=== PATIENT | female | born 1985 | race Two or more races ===

== ENCOUNTER 2016-08-01 17:47 | Emergency (ER) | payer MEDICAID ==
[~2016-08-01] VITALS: Ht 160 cm; Wt 113.4 kg
[~2016-08-01 17:47] MED LIST: INTRA UTERINE DEVICE
[2016-08-01 18:52] LABS: Basophils # (auto) 0.1 uL; Basophils % (auto) 1.2 % (0.0-2.0); Eosinophils # (auto) 0.3 uL; Eosinophils % (auto) 2.2 % (0.0-7.0); Hematocrit 42.4 % (36.0-46.0); Lymphocytes % (auto) 16.2 % (10.0-50.0); Mean Corpuscular Hemoglobin 30.1 pg (28.0-32.0); Mean Corpuscular Hgb Conc. 33.1 g/dL (32.0-36.0); Mean Corpuscular Volume 90.9 fL (80.0-100.0); Monocytes # (auto) 0.9 uL; Monocytes % (auto) 7.2 % (0.0-12.0); Neutrophils # (auto) 9.1 uL; Neutrophils % (auto) 73.2 % (37.0-80.0); Platelet Count (auto) 328 10^3/uL (140-450); Red Cell Distribution Width 13.6 % (11.6-16.0); White Blood Cell 12.4 10^3/uL (4.4-10.8)
[2016-08-01 19:10] LABS: Albumin 3.5 g/dL (3.4-5.0); BUN/Creatinine Ratio 19.4; Calcium 8.6 mg/dL (8.5-10.1); Potassium 3.9 mmol/L (3.5-5.1)
[2016-08-01 19:13] LABS: Bilirubin, Total 0.3 mg/dL (0.2-1.0); Total Protein 7.9 g/dL (6.4-8.2)
[2016-08-01 19:14] LABS: Urine Bilirubin Negative (Negative); Urine Blood Negative /uL (Negative); Urine Color Yellow (Yellow); Urine Glucose Normal (Normal); Urine Ketone Negative (Negative); Urine Mucus FEW (None Seen); Urine Nitrite Negative (Negative); Urine RBC 1 /hpf (0 - 4); Urine Squamous Epithelial Cell FEW /hpf (<5); Urine Urobilinogen Normal (Negative)
[2016-08-02 00:15] VITALS: BP 137/90
== END 2016-08-02 00:24 | disposition home or self-care (01) ==
LOC: ER 18:06
DX: N39.0 Urinary tract infection, site not specified (principal); E66.01 Morbid (severe) obesity due to excess calories; Z68.41 Body mass index [BMI] 40.0-44.9, adult; Z90.49 Acquired absence of other specified parts of digestive tract
CPT/HCPCS: 36415; 80053; 81001; 81025; 85025; 85049

== ENCOUNTER 2016-12-02 23:50 | Emergency (ER) | payer MEDICAID ==
[~2016-12-02] VITALS: Ht 160 cm; Wt 117.9 kg
[2016-12-03 01:24] LABS: Basophils # (auto) 0 uL; Basophils % (auto) 0.3 % (0.0-2.0); Eosinophils # (auto) 0.3 uL; Eosinophils % (auto) 3.5 % (0.0-7.0); Hemoglobin 13.6 g/dL (12.2-16.2); Lymphocytes # (auto) 2.8 uL; Mean Corpuscular Hemoglobin 30.8 pg (28.0-32.0); Mean Corpuscular Hgb Conc. 34.1 g/dL (32.0-36.0); Mean Corpuscular Volume 90.2 fL (80.0-100.0); Mean Platelet Volume 8.2 fL (7.4-10.4); Monocytes # (auto) 0.6 uL; Monocytes % (auto) 6.9 % (0.0-12.0); Neutrophils # (auto) 5.5 uL; Neutrophils % (auto) 59.3 % (37.0-80.0); Platelet Count (auto) 296 10^3/uL (140-450); Red Cell Distribution Width 13.9 % (11.6-16.0); White Blood Cell 9.3 10^3/uL (4.4-10.8)
[2016-12-03 01:38] VITALS: BP 135/75
[2016-12-03 01:40] LABS: Albumin 3.4 g/dL (3.4-5.0); BUN/Creatinine Ratio 13.1; Calcium 8.3 mg/dL (8.5-10.1); Potassium 3.8 mmol/L (3.5-5.1)
[2016-12-03 01:42] LABS: Bilirubin, Total 0.1 mg/dL (0.2-1.0); Total Protein 7.2 g/dL (6.4-8.2)
[2016-12-03 02:05] LABS: Urine Bilirubin Negative (Negative); Urine Blood Negative /uL (Negative); Urine Ca Oxalate Crystal FEW (None Seen); Urine Color Yellow (Yellow); Urine Glucose Normal (Normal); Urine Ketone Negative (Negative); Urine Mucus FEW (None Seen); Urine Nitrite Negative (Negative); Urine RBC 1 /hpf (0 - 4); Urine Squamous Epithelial Cell FEW /hpf (<5); Urine Urobilinogen Normal (Negative); Urine pH 5.5 (5.0-8.0)
== END 2016-12-03 03:01 | disposition home or self-care (01) ==
LOC: ER 23:53
DX: S91.301A Unspecified open wound, right foot, initial encounter (principal); W57.XXXA Bitten or stung by nonvenomous insect and other nonvenomous arthropods, initial encounter; Y93.9 Activity, unspecified; Y92.89 Other specified places as the place of occurrence of the external cause; Y99.8 Other external cause status; Z90.49 Acquired absence of other specified parts of digestive tract
CPT/HCPCS: 36415; 73620; 80053; 81001; 84702; 85025

== ENCOUNTER 2017-04-02 16:48 | Emergency (ER) | payer MEDICAID ==
[~2017-04-02] VITALS: Ht 157.5 cm; Wt 117.5 kg
[2017-04-02 16:59] VITALS: BP 123/76
[2017-04-02 17:59] LABS: Basophils # (auto) 0.1 uL; Basophils % (auto) 0.8 % (0.0-2.0); Eosinophils # (auto) 0.2 uL; Eosinophils % (auto) 2.3 % (0.0-7.0); Hematocrit 41.8 % (36.0-46.0); Hemoglobin 14.3 g/dL (12.2-16.2); Lymphocytes # (auto) 2.2 uL; Mean Corpuscular Hemoglobin 31.6 pg (28.0-32.0); Mean Corpuscular Hgb Conc. 34.1 g/dL (32.0-36.0); Mean Corpuscular Volume 92.6 fL (80.0-100.0); Mean Platelet Volume 7.7 fL (6.9-10.8); Monocytes # (auto) 0.7 uL; Monocytes % (auto) 6.2 % (0.0-12.0); Neutrophils # (auto) 7.4 uL; Neutrophils % (auto) 69.7 % (37.0-80.0); Platelet Count (auto) 314 10^3/uL (140-450); Red Cell Distribution Width 13.1 % (11.8-14.3); White Blood Cell 10.6 10^3/uL (4.4-10.8)
[2017-04-02 18:02] LABS: Urine Bilirubin Negative (Negative); Urine Blood Negative /uL (Negative); Urine Color Colorless (Yellow); Urine Glucose Normal (Normal); Urine Ketone Negative (Negative); Urine Nitrite Negative (Negative); Urine RBC <1 /hpf (0 - 4); Urine Squamous Epithelial Cell FEW /hpf (<5); Urine Urobilinogen Normal (Negative); Urine pH 5.5 (5.0-8.0)
[2017-04-02 18:16] LABS: Albumin 3.9 g/dL (3.4-5.0); Bilirubin, Total 0.4 mg/dL (0.2-1.0); Potassium 3.8 mmol/L (3.5-5.1); Total Protein 8.2 g/dL (6.4-8.2)
== END 2017-04-03 00:54 | disposition home or self-care (01) ==
LOC: ER 16:48
DX: R10.31 Right lower quadrant pain (principal); Z90.49 Acquired absence of other specified parts of digestive tract; R11.0 Nausea
CPT/HCPCS: 36415; 74176; 80053; 81001; 81025; 85025

== ENCOUNTER 2019-08-14 06:55 | Emergency (ER) | payer MEDICAID ==
[~2019-08-14] VITALS: Ht 160 cm; Wt 122.5 kg
[2019-08-14 07:27] VITALS: BP 128/80
[2019-08-14] MEDS ORDERED: KETOROLAC TROMETH 60MG/2ML VIAL IM ONE (09:00)
== END 2019-08-14 09:49 | disposition home or self-care (01) ==
LOC: ER 06:55
DX: N20.0 Calculus of kidney (principal); K76.0 Fatty (change of) liver, not elsewhere classified; Z90.49 Acquired absence of other specified parts of digestive tract
CPT/HCPCS: 74176; 81002; 81025; 96372; 99284; J1885

== ENCOUNTER 2020-06-04 19:47 | Emergency (ER) | payer MEDICAID ==
[~2020-06-04] VITALS: Ht 160 cm; Wt 126.6 kg
[2020-06-05 05:10] VITALS: BP 115/62
== END 2020-06-05 05:14 | disposition home or self-care (01) ==
LOC: ER 19:47
DX: H10.32 Unspecified acute conjunctivitis, left eye (principal); Z90.49 Acquired absence of other specified parts of digestive tract

== ENCOUNTER 2022-08-27 19:59 | Emergency (ER) | payer MEDICAID ==
[~2022-08-27] VITALS: Ht 160 cm; Wt 120.4 kg
[2022-08-27 20:20] VITALS: BP 134/77
[2022-08-27] MEDS ORDERED: KETOROLAC TROMETH 60MG/2ML VIAL IM ONE (20:45)
[2022-08-27] MEDS ORDERED: CYCL-838 PO (23:05)
[2022-08-27] MEDS ORDERED: HYDR-4902 PO (23:05)
[2022-08-27] MEDS ORDERED: IBUP800T26 PO (23:05)
== END 2022-08-27 23:06 | disposition home or self-care (01) ==
LOC: ER 19:59
DX: M54.50 Low back pain, unspecified (principal); Z90.49 Acquired absence of other specified parts of digestive tract; Z79.899 Other long term (current) drug therapy
CPT/HCPCS: 72100

== ENCOUNTER 2024-01-22 05:08 | Emergency (ER) | payer MEDICAID ==
[~2024-01-22] VITALS: Ht 160 cm; Wt 122.9 kg
[2024-01-22 05:08] VITALS: BP 134/89; PULSE 76; RESP 16; TEMP 98.7
[~2024-01-22 05:08] MED LIST changes: +CYCL-838 PO; +HYDR-4902 PO; +IBUP-1455 PO
[2024-01-22 05:40] VITALS: O2SAT 96
[2024-01-22] MEDS ORDERED: ACET500T58 PO (05:46)
[2024-01-22] MEDS ORDERED: CIPR1SUS8 OT (05:46)
[2024-01-23] MEDS ORDERED: AMOX875T4 PO (03:51)
[2024-01-23] MEDS ORDERED: IBUP-1456 PO (03:51)
== END 2024-01-22 05:56 | disposition home or self-care (01) ==
LOC: ER 05:08
DX: H60.92 Unspecified otitis externa, left ear (principal); E11.9 Type 2 diabetes mellitus without complications; Z79.899 Other long term (current) drug therapy; Z79.891 Long term (current) use of opiate analgesic; Z79.1 Long term (current) use of non-steroidal anti-inflammatories (NSAID); Z90.49 Acquired absence of other specified parts of digestive tract; Z98.890 Other specified postprocedural states

== ENCOUNTER 2024-01-23 01:24 | Emergency (ER) | payer MEDICAID ==
[~2024-01-23] VITALS: Ht 160 cm; Wt 120.0 kg
[2024-01-23 01:24] VITALS: BP 146/83; PULSE 82; RESP 18; O2SAT 96
[~2024-01-23 01:24] MED LIST changes: +ACET500T58 PO; +CIPR1SUS8 OT
[2024-01-23] MEDS ORDERED: IBUP-1456 PO (03:51)
[2024-01-23] MEDS ORDERED: AMOX875T4 PO (03:51)
[2024-01-23] MEDS: cefTRIAXone SOD 1,000 MG VL IM ONE (03:54)
[2024-01-23] MEDS: KETOROLAC TROMETH 60MG/2ML VIAL IM ONE (03:54)
== END 2024-01-23 03:59 | disposition home or self-care (01) ==
LOC: ER 01:24
DX: H60.92 Unspecified otitis externa, left ear (principal); E11.9 Type 2 diabetes mellitus without complications; Z90.49 Acquired absence of other specified parts of digestive tract; Z79.899 Other long term (current) drug therapy
CPT/HCPCS: 96372; 99284; J0696; J1885